=== PATIENT | male | born 1935 | race Caucasian/White ===

== ENCOUNTER 2017-12-04 14:10 | Outpatient (CLI) | payer OTHER ==
[2017-12-04 15:24] LABS: eGFR (African) > 60; eGFR (Non-African) > 60
== END 2017-12-04 14:11 ==
LOC: LAB 14:10
PROVIDERS: ATTEND Family Medicine
DX: I49.9 Cardiac arrhythmia, unspecified (principal); E78.2 Mixed hyperlipidemia; E11.9 Type 2 diabetes mellitus without complications
CPT/HCPCS: 36415; 80053; 80061; 83036

== ENCOUNTER 2018-10-20 15:35 | Outpatient (CLI) | payer OTHER ==
--- NOTE | 2018-10-20 17:40 | Diagnostic Imaging Report ---
HARINDER BRUNSON [facility] [address] [facility].[address] [address] Report Submission Date: Oct 20, 2018 5:19:40 PM CDT Patient Study Name: BEATRICE SNELL Date: Oct 20, 2018 3:51:52 PM CDT Modality Type: DX Gender: M Description: L SPINE 2 OR 3 VIEWS : 31 Institution: [facility] Physician: HARINDER BRUNSON Examination: Plain film lumbar spine History: Pt states non traumatic pain when standing from a stitting position, hx of prostate ca Findings: 3 views of the lumbar spine demonstrates osteopenia. No anterior compression. Minimal listhesis. Disc space narrowing and osteophyte formation. Facet degenerative changes. Atherosclerotic disease involving the abdominal aorta. No soft tissue abnormalities. Impression: Osteopenia and degenerative changes. No compression deformity. Electronically signed on Oct 20, 2018 5:19:40 PM CDT by: Wild GONZALEZ
== END 2018-10-20 15:36 ==
LOC: LAB 15:35
PROVIDERS: ATTEND Family Medicine
DX: Z12.5 Encounter for screening for malignant neoplasm of prostate (principal); Z85.46 Personal history of malignant neoplasm of prostate; M54.5 Low back pain; M85.88 Other specified disorders of bone density and structure, other site
CPT/HCPCS: 36415; 72100; G0103